=== PATIENT | female | born 1960 | race African-American/Black ===

== ENCOUNTER 2019-01-10 00:41 | Inpatient (IN) | payer MEDICAID, OTHER ==
[~2019-01-10] VITALS: Ht 154.9 cm; Wt 77.1 kg
[2019-01-10] MEDS ORDERED: ASPIRIN 325MG TABLET PO ONE (01:00)
[2019-01-10 01:19] LABS: BASOPHILS % 0.6 % (0.0-2.0); EOSINOPHILS % 1.3 % (0.0-5.0); HEMOGLOBIN. 11.5 g/dL (12.0-16.0); LYMPHOCYTES % 39.6 % (20.0-50.0); MEAN CORPUSCULAR HEMOGLOBIN 26.9 pg (28.0-32.0); MEAN CORPUSCULAR VOLUME 81.9 fL (81.0-99.0); MEAN PLATELET VOLUME 8.5 fl (7.4-10.4); MONOCYTES % 5.2 % (2.0-8.0); NEUTROPHILS % 53.3 % (40.0-76.0); PLATELET 375 x1000/uL (130-400); RED BLOOD CELL COUNT 4.28 mill/uL (4.2-5.4); RED CELL DISTRIBUTION WIDTH 13.3 % (11.6-14.6)
[2019-01-10 01:26] LABS: CHLORIDE 102 mEq/L (98-107)
[2019-01-10] MEDS ORDERED: MAGNESIUM/ALUMINUM HYDROXIDE/SIMETHICONE 30ML UDC PO ONE (06:30)
[2019-01-10] MEDS ORDERED: VISCOUS LIDOCAINE 2% 15 ML UDC PO ONE (06:30)
[2019-01-10] MEDS ORDERED: MAGNESIUM/ALUMINUM HYDROXIDE/SIMETHICONE 30ML UDC ONE (06:49)
[2019-01-10 08:00] VITALS: BP 182/93
[2019-01-10 10:20] VITALS: BP 182/93
[2019-01-10 10:30] VITALS: BP 140/62
[2019-01-10 12:00] VITALS: BP 180/88
[2019-01-10] MEDS ORDERED: TRAMADOL 50MG TABLET PO PRN (12:15)
[2019-01-10] MEDS ORDERED: GUAIFENESIN 200MG/10ML SUGAR FREE UDC PO PRN (12:15)
[2019-01-10] MEDS ORDERED: ACETAMINOPHEN 325MG TABLET PO PRN (12:15)
[2019-01-10] MEDS ORDERED: CLONIDINE 0.1MG TABLET PO PRN (12:15)
[2019-01-10] MEDS ORDERED: NA PHOS,M-B/NA PHOS,DI-BA ENEMA 118ML PR PRN (12:15)
[2019-01-10] MEDS ORDERED: IPRATROPIUM/ALBUTEROL 0.5-3(2.5)MG/3ML NEB INH PRN (12:15)
[2019-01-10] MEDS ORDERED: NITROGLYCERIN 0.4MG TABLET SL SL PRN (12:15)
[2019-01-10] MEDS ORDERED: DOCUSATE SODIUM 100MG CAPSULE PO PRN (12:15)
[2019-01-10] MEDS ORDERED: ZOLPIDEM TARTRATE 5MG TABLET PO PRN (12:15)
[2019-01-10] MEDS ORDERED: KETOROLAC 30MG/ML VIAL IV PRN (12:15)
[2019-01-10] MEDS ORDERED: DEXTROSE 50% WATER 50ML SYRINGE IV PRN (12:15)
[2019-01-10] MEDS ORDERED: ONDANSETRON HCL 4MG/2ML INJ IV PRN (12:15)
[2019-01-10] MEDS ORDERED: MAGNESIUM/ALUMINUM HYDROXIDE/SIMETHICONE 30ML UDC PO PRN (12:15)
[2019-01-10] MEDS: SUCRALFATE 1 G/10 ML UDC PO SCH ×3 (12:20→21:55)
[2019-01-10] MEDS: BLOOD SUGAR DIAGNOSTIC STRIP TEST SCH ×3 (12:33→21:00)
[2019-01-10] MEDS ORDERED: LEVOFLOXACIN 500MG PREMIX 100 ML IV SCH (14:00)
[2019-01-10] MEDS: ASPIRIN 325MG EC TABLET PO SCH (15:10)
[2019-01-10] MEDS: METOPROLOL TARTRATE 25MG TABLET PO SCH ×2 (15:11→21:57)
[2019-01-10] MEDS: FAMOTIDINE 20MG TABLET PO SCH (15:49)
[2019-01-10] MEDS: ENOXAPARIN 40MG/0.4ML SYR SUBCUT SCH (15:51)
[2019-01-10] MEDS: INSULIN LISPRO 100 UNITS/ML SUBCUT SCH ×3 (15:52→22:00)
[2019-01-10] MEDS: LISINOPRIL 20MG TABLET PO SCH ×2 (15:54→21:56)
[2019-01-10 16:00] VITALS: BP_SYST 140; BP_SYST 180; BP_DIAS 60; BP_DIAS 88
[2019-01-10 16:41] LABS: CREATINE KINASE 65 IU/L (26-192)
[2019-01-10 16:42] LABS: CREATINE KINASE MB FRACTION < 1.0 ng/mL (0.5-3.6)
[2019-01-10 17:39] LABS: *AMPHETAMINES SCREEN URINE NEGATIVE (NEGATIVE); *BARBITURATES SCREEN URINE NEGATIVE (NEGATIVE); *BENZODIAZEPINES SCREEN URINE NEGATIVE (NEGATIVE); *COCAINE SCREEN URINE NEGATIVE (NEGATIVE); METHADONE URINE SCREEN NEGATIVE (NEGATIVE)
[2019-01-10 17:40] LABS: CANNABINOID URINE SCREEN NEGATIVE (NEGATIVE); OPIATES URINE SCREEN NEGATIVE (NEGATIVE); PHENCYCLIDINE URINE SCREEN NEGATIVE (NEGATIVE)
[2019-01-10] MEDS ORDERED: KETOROLAC 15MG/ML VIAL IV PRN (20:00)
[2019-01-10 20:21] VITALS: BP 126/64
[2019-01-10] MEDS: AZITHROMYCIN 500 MG TABLET PO SCH (21:55)
[2019-01-10 23:53] LABS: CREATINE KINASE 55 IU/L (26-192)
[2019-01-10 23:54] LABS: CREATINE KINASE MB FRACTION < 1.0 ng/mL (0.5-3.6)
[2019-01-11] VITALS (7 sets, daily range): BP systolic 117–154; BP diastolic 52–79
[2019-01-11] MEDS: BLOOD SUGAR DIAGNOSTIC STRIP TEST SCH ×3 (06:52→17:20)
[2019-01-11] MEDS: SUCRALFATE 1 G/10 ML UDC PO SCH ×3 (06:52→18:17)
[2019-01-11] MEDS: INSULIN LISPRO 100 UNITS/ML SUBCUT SCH ×3 (07:50→15:01)
[2019-01-11] MEDS: METOPROLOL TARTRATE 25MG TABLET PO SCH (09:00)
[2019-01-11] MEDS ORDERED: GUAIFENESIN 200MG/10ML SUGAR FREE UDC PO PRN (09:45)
[2019-01-11] MEDS ORDERED: LEVOFLOXACIN 250MG PREMIX 50 ML IV SCH (12:00)
[2019-01-11 12:48] LABS: HEMATOCRIT 32.4 % (36.0-48.0); HEMOGLOBIN 10.7 g/dL (12.0-16.0); MEAN CORPUSCULAR HEMOGLOBIN 26.4 pg (28.0-32.0); MEAN CORPUSCULAR VOLUME 80.4 fL (81.0-99.0); PLATELET 349 x1000/uL (130-400); RED BLOOD CELL COUNT 4.03 mill/uL (4.2-5.4); RED CELL DISTRIBUTION WIDTH 13.8 % (11.6-14.6)
[2019-01-11 12:56] LABS: CHLORIDE 101 mEq/L (98-107)
[2019-01-11] MEDS ORDERED: INSULIN LISPRO 100 UNITS/ML SUBCUT ONE (15:15)
[2019-01-11] MEDS ORDERED: INSULIN REGULAR (HUMULIN R) 300UNITS/3ML SUBCUT NR (16:00)
[2019-01-11] MEDS: AZITHROMYCIN 500 MG TABLET PO SCH (16:04)
[2019-01-11] MEDS: LISINOPRIL 20MG TABLET PO SCH (16:04)
[2019-01-11] MEDS: FAMOTIDINE 20MG TABLET PO SCH (16:04)
[2019-01-11] MEDS: ASPIRIN 325MG EC TABLET PO SCH (16:04)
[2019-01-11] MEDS: ENOXAPARIN 40MG/0.4ML SYR SUBCUT SCH (16:05)
[2019-01-11] MEDS ORDERED: INSULIN LISPRO 100 UNITS/ML SUBCUT NR (19:00)
[2019-01-11] MEDS ORDERED: INSULIN LISPRO 100 UNITS/ML SUBCUT SCH (21:00)
== END 2019-01-11 21:00 | disposition home or self-care (01) | DRG 682 ==
LOC: ER 00:41 → 6WST 05:49 → ENRESERV 07:08
PROVIDERS: ADMIT Internal Medicine; ATTEND Internal Medicine
DX: N17.9 Acute kidney failure, unspecified (principal); G92 Toxic encephalopathy; G90.8 Other disorders of autonomic nervous system; E11.649 Type 2 diabetes mellitus with hypoglycemia without coma; D63.8 Anemia in other chronic diseases classified elsewhere; J40 Bronchitis, not specified as acute or chronic; K21.9 Gastro-esophageal reflux disease without esophagitis; E11.65 Type 2 diabetes mellitus with hyperglycemia; R07.89 Other chest pain; E11.22 Type 2 diabetes mellitus with diabetic chronic kidney disease; N18.9 Chronic kidney disease, unspecified; I12.9 Hypertensive chronic kidney disease with stage 1 through stage 4 chronic kidney disease, or unspecified chronic kidney disease; Z83.3 Family history of diabetes mellitus; Z79.4 Long term (current) use of insulin; Z91.19 Patient's noncompliance with other medical treatment and regimen
CPT/HCPCS: 36415; 71045; 76700; 80061; 80305; 82550; 82553; 82962; 83036; 83880; 84484; 85027; 93005; 93306; 93970; 99285; J1650; J1815; J1885; J1956; J7040; J7620

== ENCOUNTER 2019-10-30 09:49 | Emergency (ER) | payer OTHER ==
[~2019-10-30] VITALS: Ht 154.9 cm; Wt 70.0 kg
[2019-10-30] MEDS ORDERED: HYDROCODONE/ACETAMINOPHEN 5/325MG TABLET PO STA (11:20)
[2019-10-30 14:03] VITALS: BP 142/70
== END 2019-10-30 14:04 | disposition home or self-care (01) ==
LOC: ER 09:49
DX: M54.12 Radiculopathy, cervical region (principal); M79.602 Pain in left arm; T22.00XA Burn of unspecified degree of shoulder and upper limb, except wrist and hand, unspecified site, initial encounter; X15.8XXA Contact with other hot household appliances, initial encounter; Y93.89 Activity, other specified; Y92.89 Other specified places as the place of occurrence of the external cause
CPT/HCPCS: 81025; 93005; 93971; 99284

== ENCOUNTER 2022-08-30 22:15 | Emergency (ER) | payer OTHER ==
[~2022-08-30] VITALS: Ht 165.1 cm; Wt 73.0 kg
[2022-08-31 01:32] LABS: BASOPHILS % 0.3 % (0.0-2.0); EOSINOPHILS % 1.4 % (0.0-5.0); HEMATOCRIT. 33.7 % (36.0-48.0); HEMOGLOBIN. 10.9 g/dL (12.0-16.0); LYMPHOCYTES % 23.9 % (20.0-50.0); MEAN CORPUSCULAR HEMOGLOBIN 26.2 pg (28.0-32.0); MEAN CORPUSCULAR VOLUME 81.1 fL (81.0-99.0); MEAN PLATELET VOLUME 8.6 fl (7.4-10.4); MONOCYTES % 4.3 % (2.0-8.0); NEUTROPHILS % 70.1 % (40.0-76.0); PLATELET 345 x1000/uL (130-400); RED BLOOD CELL COUNT 4.16 mill/uL (4.2-5.4)
[2022-08-31 01:41] LABS: CHLORIDE 98 mEq/L (98-107)
[2022-08-31 01:50] LABS: PROTHROMBIN TIME 10.7 sec (9.6-11.0)
[2022-08-31 06:00] VITALS: BP 143/68
== END 2022-08-31 07:10 | disposition home or self-care (01) ==
LOC: ER 22:15 → CMPBEDREQ 08-31 10:32
DX: R07.89 Other chest pain (principal); N17.9 Acute kidney failure, unspecified; E11.9 Type 2 diabetes mellitus without complications; I11.0 Hypertensive heart disease with heart failure; I50.9 Heart failure, unspecified; Z79.84 Long term (current) use of oral hypoglycemic drugs; Z79.899 Other long term (current) drug therapy
CPT/HCPCS: 36415; 71045; 80053; 82962; 83880; 84484; 85025; 93005; 99285

== ENCOUNTER 2024-02-27 13:35 | Emergency (ER) | payer OTHER ==
[~2024-02-27] VITALS: Ht 170.2 cm; Wt 69.0 kg
[2024-02-27 13:42] VITALS: BP 136/76; PULSE 76; RESP 17; TEMP 98.4; O2SAT 100
[2024-02-27 14:48] LABS: BASOPHILS % 0.3 % (0.0-2.0); HEMATOCRIT. 31.1 % (36.0-48.0); HEMOGLOBIN. 10.3 g/dL (12.0-16.0); LYMPHOCYTES % 14.8 % (20.0-50.0); MEAN CORPUSCULAR HEMOGLOBIN 26.5 pg (28.0-32.0); MEAN CORPUSCULAR VOLUME 80.5 fL (81.0-99.0); MEAN PLATELET VOLUME 7.7 fl (7.4-10.4); MONOCYTES % 7.4 % (2.0-8.0); NEUTROPHILS % 76.5 % (40.0-76.0); PLATELET 344 x1000/uL (130-400); RED BLOOD CELL COUNT 3.87 mill/uL (4.2-5.4); RED CELL DISTRIBUTION WIDTH 13.7 % (11.6-14.6); WHITE BLOOD COUNT 11.1 x1000/uL (4.5-11.0)
[2024-02-27 14:54] LABS: CHLORIDE 103 mEq/L (98-107); SODIUM 137 mEq/L (136-145)
[2024-02-27 14:55] LABS: CALCIUM 9.6 mg/dL (8.7-10.4); CARBON DIOXIDE 29 mEq/L (21-32)
[2024-02-27 14:57] LABS: PROTHROMBIN TIME 10.8 sec (9.6-11.0)
[2024-02-27 15:00] LABS: CREATININE 2.1 mg/dL (0.6-1.0); GLUCOSE 111 mg/dL (70-105); UREA NITROGEN BLOOD 20 mg/dL (9-23)
[2024-02-27 15:01] LABS: TROPONIN I HIGH SENSITIVITY 4 ng/L (3.0-34)
[2024-02-27 15:02] LABS: ALANINE AMINOTRANSFERASE 17 IU/L (10-49); ALBUMIN 4.1 g/dL (3.2-4.8); ASPARTATE AMINOTRANSFERASE 21 IU/L (<34); BILIRUBIN TOTAL 0.6 mg/dL (0.1-1.0); PROTEIN TOTAL 6.8 g/dL (6.0-8.3)
[2024-02-27 18:30] LABS: CLARITY URINE CLEAR (CLEAR); COLOR URINE YELLOW (YELLOW); GLUCOSE URINE 3+ (NEGATIVE); KETONES URINE NEGATIVE (NEGATIVE); LEUKOCYTE ESTERASE URINE NEGATIVE (NEGATIVE); NITRITE URINE NEGATIVE (NEGATIVE); OCCULT BLOOD URINE NEGATIVE (NEGATIVE); PH URINE 6.5 (4.5-8.0); PROTEIN URINE 3+ (NEGATIVE); SPECIFIC GRAVITY URINE 1.012 (1.005-1.030); UROBILINOGEN URINE 0.2 E.U./dL (0.2-1.0)
[2024-02-27 19:08] LABS: TROPONIN I HIGH SENSITIVITY < 4 ng/L (3.0-34)
[2024-02-27 19:16] LABS: BACTERIA URINE 1+; RBC URINE 0-2 /hpf (0-2); SQUAMOUS EPITHELIAL CELL URINE FEW /lpf (RARE/1+); WBC URINE 0-2 /hpf (0-2)
== END 2024-02-27 20:46 | disposition home or self-care (01) ==
LOC: ER 13:35
DX: M54.12 Radiculopathy, cervical region (principal); R11.2 Nausea with vomiting, unspecified; E11.9 Type 2 diabetes mellitus without complications; I11.0 Hypertensive heart disease with heart failure; I50.9 Heart failure, unspecified; Z88.8 Allergy status to other drugs, medicaments and biological substances
CPT/HCPCS: 36415; 71045; 74176; 80053; 81003; 82962; 84484; 85025; 93005; 99285

== ENCOUNTER 2024-05-26 10:43 | Emergency (ER) | payer OTHER ==
[~2024-05-26] VITALS: Ht 170.2 cm; Wt 72.0 kg
[2024-05-26 10:45] VITALS: O2SAT 100
[2024-05-26] MEDS ORDERED: LIDOCAINE 5% PATCH TOP STA (11:36)
[2024-05-26] MEDS ORDERED: ACETAMINOPHEN 325MG TABLET PO ONE (11:45)
[2024-05-26] MEDS: LIDOCAINE 5% PATCH TOP NR (14:00)
[2024-05-26] MEDS: ACETAMINOPHEN 325MG TABLET PO NR (14:00)
[2024-05-26] MEDS ORDERED: METH-773 MT (15:52)
[2024-05-26 18:13] VITALS: BP 136/81; PULSE 81; RESP 16; TEMP 97.9
== END 2024-05-26 18:17 | disposition home or self-care (01) ==
LOC: ER 10:54
DX: S09.90XA Unspecified injury of head, initial encounter (principal); S89.91XA Unspecified injury of right lower leg, initial encounter; M54.2 Cervicalgia; I11.0 Hypertensive heart disease with heart failure; I50.9 Heart failure, unspecified; E11.9 Type 2 diabetes mellitus without complications; M54.50 Low back pain, unspecified; V49.49XA Driver injured in collision with other motor vehicles in traffic accident, initial encounter; Y93.89 Activity, other specified; Y92.89 Other specified places as the place of occurrence of the external cause; Y99.8 Other external cause status
CPT/HCPCS: 72070; 72100; 73562; 99284

== ENCOUNTER 2024-06-08 16:39 | Emergency (ER) | payer OTHER ==
[~2024-06-08] VITALS: Ht 162.6 cm; Wt 64.0 kg
[~2024-06-08 16:39] MED LIST: METH-773 MT
[2024-06-08 16:40] VITALS: O2SAT 100
[2024-06-08] MEDS: ACETAMINOPHEN 325MG TABLET PO ONE (20:45)
[2024-06-08] MEDS: ONDANSETRON 4MG ODT PO ONE (22:15)
[2024-06-08] MEDS: HYDROCODONE/ACETAMINOPHEN 5/325MG TABLET PO ONE (22:45)
[2024-06-08] MEDS ORDERED: HYDR-4001 MT (23:31)
[2024-06-08] MEDS ORDERED: ONDA4TAB50 MT (23:31)
[2024-06-08] MEDS ORDERED: P20 MT (23:31)
[2024-06-08 23:45] VITALS: BP 141/89; PULSE 75; RESP 17; TEMP 36.78072; O2SAT 100
== END 2024-06-09 00:11 | disposition home or self-care (01) ==
LOC: ER 16:39
DX: M46.92 Unspecified inflammatory spondylopathy, cervical region (principal); I11.0 Hypertensive heart disease with heart failure; I50.9 Heart failure, unspecified; E11.9 Type 2 diabetes mellitus without complications; M25.512 Pain in left shoulder; Z79.899 Other long term (current) drug therapy
CPT/HCPCS: 99284; 73030; Q0162